=== PATIENT | female | born 1935 | race Caucasian/White ===

== ENCOUNTER → 2017-06-11 | Outpatient (CLI) | payer MEDICARE, OTHER ==
[2017-06-14 12:57] LABS: HPV Genotype 16 Not Detected (NOTDET); HPV Genotype 18 Not Detected (NOTDET)
[2017-06-19 09:26] LABS: HPV High Risk Other Not Detected (NOTDET)
== END | disposition home or self-care (01) ==
LOC: LAB SHORT 19:15 → LAB 19:15
PROVIDERS: Nurse Practitioner Women's Health
DX: Z12.4 Encounter for screening for malignant neoplasm of cervix (principal)
CPT/HCPCS: 87624; G0123

== ENCOUNTER → 2018-09-26 | Outpatient (CLI) | payer MEDICARE, OTHER | LOC: LAB 13:45 → LAB SHORT 13:45 | DX: R30.0 Dysuria (principal) | CPT/HCPCS: 87086 ==

== ENCOUNTER → 2018-10-05 | Outpatient (CLI) | payer MEDICARE, OTHER | END | disposition home or self-care (01) | LOC: LAB 15:23 → LAB SHORT 15:23 | DX: R30.0 Dysuria (principal) | CPT/HCPCS: 87086 ==

== ENCOUNTER → 2019-10-21 | Outpatient (CLI) | payer MEDICARE, OTHER ==
[2019-10-21 15:11] LABS: BASOPHILS ABSOLUTE AUTO 0.05 K/mm3 (0.00-0.23); BASOPHILS PERCENT AUTO 1 % (0-2); EOSINOPHILS ABSOLUTE AUTO 0.21 K/mm3 (0.00-0.68); EOSINOPHILS PERCENT AUTO 2 % (0-6); Hematocrit 40.1 % (33.0-51.0); Hemoglobin 13.5 g/dL (11.5-16.0); IMMATURE GRAN ABSOLUTE AUTO 0.03 K/mm3 (0.00-0.10); IMMATURE GRAN PERCENT AUTO 0 % (0-1); LYMPHOCYTES ABSOLUTE AUTO 2.84 K/mm3 (0.84-5.20); LYMPHOCYTES PERCENT AUTO 32 % (21-46); MONOCYTES ABSOLUTE AUTO 0.83 K/mm3 (0.16-1.47); MONOCYTES PERCENT AUTO 9 % (4-13); Mean Corpuscular HGB 31.4 pg (26.0-34.0); Mean Corpuscular HGB Conc 33.7 g/dL (31.5-36.5); Mean Corpuscular Volume 93 fL (80-100); Mean Platelet Volume 9.7 fL (9.1-12.4); NEUTROPHILS ABSOLUTE AUTO 4.86 K/mm3 (1.96-9.15); NEUTROPHILS PERCENT AUTO 55 % (41-73); Platelet Count 268 K/mm3 (150-400); RDW Coefficient Variation 13.8 % (11.7-14.2); RDW Standard Deviation 46.8 fL (35.1-46.3); White Blood Cell Count 8.82 K/mm3 (4.00-11.30)
[2019-10-21 15:23] LABS: Alanine Aminotransfer (ALT/SGP 37 U/L (12-78); Albumin, Blood 3.7 g/dL (3.4-5.0); Alk Phos 74 U/L (40-126); Anion Gap 8 mmol/L (6-16); Aspartate Aminotrans (AST/SGOT 29 U/L (12-37); Blood Urea Nitrogen 12 mg/dL (8-24); Bun/Creatinine Ratio 12.2 (12.0-20.0); CO2, Blood 26 mmol/L (21-32); Calcium, Blood 8.6 mg/dL (8.5-10.1); Chloride, Blood 106 mmol/L (98-108); Creatinine, Blood 0.98 mg/dL (0.40-1.00); Globulin, Blood 3.7 g/dL (2.2-4.0); Glomerular Filtration Rate 54 (60-); Glucose, Blood 81 mg/dL (70-99); Potassium, Blood 3.8 mmol/L (3.5-5.5); Sodium, Blood 140 mmol/L (136-145); Total Protein, Blood 7.4 g/dL (6.4-8.2); Troponin I <0.017 ng/mL (0.000-0.040)
== END ==
LOC: LAB EV 15:01 → LAB SHORT 15:01
PROVIDERS: Emergency Medicine
DX: R07.9 Chest pain, unspecified (principal)
CPT/HCPCS: 80053; 84484; 85025

== ENCOUNTER → 2023-02-03 | Outpatient (CLI) | payer OTHER ==
[2023-02-03 17:25] LABS: Source, Urine Voided
[2023-02-03 18:10] LABS: Bacteria Few /hpf; Red Blood Cells, Urine 0-2 /hpf (0-2); Squamous Epithelial Cells Mod /hpf (Few)
== END ==
LOC: LAB SHORT 13:00 → LAB 13:00
PROVIDERS: Family Medicine
DX: R30.0 Dysuria (principal)
CPT/HCPCS: 81015; 87086

== ENCOUNTER → 2024-04-12 | Outpatient (CLI) | payer OTHER | LOC: LAB 17:04 → LAB SHORT 17:04 | DX: R31.9 Hematuria, unspecified (principal) | CPT/HCPCS: 87077; 87086; 87186 ==

== ENCOUNTER 2024-08-31 05:54 | Emergency (ER) | payer OTHER ==
[~2024-08-31] VITALS: Ht 157.5 cm; Wt 73.5 kg
[2024-08-31] MEDS ORDERED: ROSUVASTATIN CA40 MG PO (06:04)
[2024-08-31] MEDS ORDERED: Prednisone10 MG PO (06:04)
[2024-08-31] MEDS ORDERED: METO50ER PO (06:04)
[2024-08-31] MEDS ORDERED: ELIQUIS5 M3 PO (06:04)
[2024-08-31] MEDS ORDERED: Ketorolac Tromethamine 30mg Vial IM ONE (07:35)
[2024-08-31] MEDS ORDERED: Colchicine 0.6 MG TAB PO ONE (07:35)
[2024-08-31 08:15] VITALS: BP 117/60
[2024-08-31] MEDS ORDERED: CEPH500 PO (10:00)
[2024-08-31] MEDS ORDERED: COLCHICINE0.6 MG PO (10:00)
== END 2024-08-31 10:10 | disposition home or self-care (01) ==
LOC: ER 05:54
DX: L03.116 Cellulitis of left lower limb (principal); M10.9 Gout, unspecified; E05.00 Thyrotoxicosis with diffuse goiter without thyrotoxic crisis or storm; E78.5 Hyperlipidemia, unspecified; I48.91 Unspecified atrial fibrillation; Z88.1 Allergy status to other antibiotic agents; Z79.01 Long term (current) use of anticoagulants; Z79.52 Long term (current) use of systemic steroids; Z79.899 Other long term (current) drug therapy
CPT/HCPCS: 73630; 96372; 99283-25; A9270; J1885

== ENCOUNTER 2024-09-13 08:35 | Inpatient (IN) | payer OTHER ==
[~2024-09-13] VITALS: Ht 157.5 cm; Wt 72.8 kg
[~2024-09-13 08:35] MED LIST: CEPH500 PO; COLCHICINE0.6 MG PO; ELIQUIS5 M3 PO; METO50ER PO; Prednisone10 MG PO; ROSUVASTATIN CA40 MG PO
[2024-09-13] MEDS ORDERED: Ondansetron HCl 2 MG / ML 2ML Vial IV ONE ×2 (09:35→12:10)
[2024-09-13 10:15] LABS: BASOPHILS ABSOLUTE AUTO 0.06 K/mm3 (0.00-0.23); BASOPHILS PERCENT AUTO 0 % (0-2); EOSINOPHILS ABSOLUTE AUTO 0.00 K/mm3 (0.00-0.68); EOSINOPHILS PERCENT AUTO 0 % (0-6); Hematocrit 42.8 % (33.0-51.0); Hemoglobin 14.8 g/dL (11.5-16.0); IMMATURE GRAN ABSOLUTE AUTO 0.10 K/mm3 (0.00-0.10); IMMATURE GRAN PERCENT AUTO 1 % (0-1); LYMPHOCYTES ABSOLUTE AUTO 1.19 K/mm3 (0.84-5.20); LYMPHOCYTES PERCENT AUTO 6 % (21-46); MONOCYTES ABSOLUTE AUTO 1.42 K/mm3 (0.16-1.47); MONOCYTES PERCENT AUTO 7 % (4-13); Mean Corpuscular HGB Conc 34.6 g/dL (31.5-36.5); Mean Corpuscular Volume 93 fL (80-100); NEUTROPHILS ABSOLUTE AUTO 17.76 K/mm3 (1.96-9.15); NEUTROPHILS PERCENT AUTO 87 % (41-73); NRBC ABSOLUTE 0.00 K/mm3 (0.00-0.02); NRBC Auto 0.0 /100 WBC (0.0-0.2); Platelet Count 429 K/mm3 (150-400); RDW Coefficient Variation 13.3 % (11.7-14.2); RDW Standard Deviation 45.3 fL (35.1-46.3)
[2024-09-13 10:56] LABS: Alanine Aminotransfer (ALT/SGP 53.0 U/L (12-78); Albumin, Blood 4.0 g/dL (3.4-5.0); Albumin/Globulin Ratio 1.0 (0.8-1.8); Anion Gap 12.0 mmol/L (3-11); Aspartate Aminotrans (AST/SGOT 40.0 U/L (12-37); Bilirubin, Total 1.8 mg/dL (0.1-1.0); Blood Urea Nitrogen 11.0 mg/dL (8-24); CO2, Blood 26.0 mmol/L (21-32); Calcium, Blood 9.3 mg/dL (8.5-10.1); Chloride, Blood 100.0 mmol/L (98-108); Creatinine, Blood 0.85 mg/dL (0.40-1.00); Globulin, Blood 4.1 g/dL (2.2-4.0); Glucose, Blood 206.0 mg/dL (70-99); Potassium, Blood 4.1 mmol/L (3.5-5.5); Sodium, Blood 134.0 mmol/L (136-145); Total Protein, Blood 8.1 g/dL (6.4-8.2)
[2024-09-13] MEDS ORDERED: COLCRYS0.6 M1 PO (12:01)
[2024-09-13] MEDS ORDERED: HYDROCODONE-AC1 EA10 PO (12:03)
[2024-09-13] MEDS ORDERED: NITROGLYCERIN0.4 M3 SL (12:03)
[2024-09-13] MEDS ORDERED: HYDROmorphone HCl/Pf 1MG SYR IV ONE (12:10)
[2024-09-13] MEDS ORDERED: NS 1,000 ML IV SCH (12:10)
[2024-09-13] MEDS ORDERED: CefTRIAXone Sodium 1,000 MG in NS 100 ML IV SCH (12:15)
[2024-09-13] MEDS ORDERED: Ondansetron HCl 2 MG / ML 2ML Vial IV PRN (12:15)
[2024-09-13] MEDS ORDERED: FentaNYL Citrate 50 MCG/ML 2 ML Injection IV PRN (12:15)
[2024-09-13 14:43] VITALS: BP 137/76
--- NOTE | 2024-09-13 18:53 | NUR ---
ADMIT NOTE PT A&OX4. PT ADMITTED DUE TO ACUTE CHOLY. PT REPORTS PAIN, DECLINED NEED FOR PAIN MEDS. PAIN IN RUQ. PT ADMITTED AT 1411. PT ORIENTED TO UNIT/FALL PRECAUTIONS CALL LIGHT. PT TRANSFERED FROM ER BED TO BED IN ROOM WITH SBA WITH PERSONAL CANE. PERSONAL BELONGINGS WITH PT. ADMISSION ASSESS COMPLETE. NO SKIN CONCERNS NOTED. PT HAS LR RUNNING AT 100ML/HR. PT ON CLEAR LIQUID DIET, TOLERATED DIET. REPORTS NAUSEA. NO VOMITTING. VSS. PT ON ROOM AIR. PLAN FOR NPO AT MIDNIGHT AND SURGERY TOMORROW. PT IN BED, BED IN LOWEST POSITION CALL LIGHT IN REACH.
--- NOTE | 2024-09-13 19:36 | NUR ---
NOTE CRITICAL LAB WAS REPORTED, NIGHT RN HEARD CALL. PT HAS LR RUNNING AT 100ML/HR. CONTROL PANEL ASSEMBLER NOTIFIED
[2024-09-13 20:06] VITALS: BP 128/113
[2024-09-13] MEDS ORDERED: Lactobacil 2-S.Thermo-Bifido 1 1 Cap PO SCH (21:00)
[2024-09-13 23:36] VITALS: BP 140/70
[2024-09-14] VITALS (19 sets, daily range): BP systolic 111–134; BP diastolic 65–97
--- NOTE | 2024-09-14 01:46 | NUR ---
DR ALDRIDGE MO REPORTS INCREASED PAIN TO RUQ/ABD, RATING 8/10 S/P ANALGESICS PER EMAR & NON-PHARM INTERVENTIONS. ORDERED ONE TIME DOSE IV DILAUDID.
[2024-09-14] MEDS ORDERED: HYDROmorphone HCl/Pf 1MG SYR IV ONE (01:50)
[2024-09-14 04:25] LABS: BASOPHILS ABSOLUTE AUTO 0.06 K/mm3 (0.00-0.23); BASOPHILS PERCENT AUTO 0 % (0-2); EOSINOPHILS ABSOLUTE AUTO 0.05 K/mm3 (0.00-0.68); EOSINOPHILS PERCENT AUTO 0 % (0-6); Hematocrit 38.2 % (33.0-51.0); Hemoglobin 13.0 g/dL (11.5-16.0); IMMATURE GRAN ABSOLUTE AUTO 0.15 K/mm3 (0.00-0.10); IMMATURE GRAN PERCENT AUTO 1 % (0-1); LYMPHOCYTES ABSOLUTE AUTO 1.88 K/mm3 (0.84-5.20); LYMPHOCYTES PERCENT AUTO 8 % (21-46); MONOCYTES ABSOLUTE AUTO 1.70 K/mm3 (0.16-1.47); MONOCYTES PERCENT AUTO 8 % (4-13); Mean Corpuscular HGB Conc 34.0 g/dL (31.5-36.5); Mean Corpuscular Volume 95 fL (80-100); NEUTROPHILS ABSOLUTE AUTO 18.59 K/mm3 (1.96-9.15); NEUTROPHILS PERCENT AUTO 83 % (41-73); NRBC ABSOLUTE 0.00 K/mm3 (0.00-0.02); NRBC Auto 0.0 /100 WBC (0.0-0.2); Platelet Count 344 K/mm3 (150-400); RDW Coefficient Variation 13.7 % (11.7-14.2); RDW Standard Deviation 48.2 fL (35.1-46.3)
[2024-09-14 04:45] LABS: Alanine Aminotransfer (ALT/SGP 36.0 U/L (12-78); Albumin, Blood 3.0 g/dL (3.4-5.0); Albumin/Globulin Ratio 0.8 (0.8-1.8); Anion Gap 7.0 mmol/L (3-11); Aspartate Aminotrans (AST/SGOT 27.0 U/L (12-37); Bilirubin, Total 1.7 mg/dL (0.1-1.0); Blood Urea Nitrogen 9.0 mg/dL (8-24); CO2, Blood 28.0 mmol/L (21-32); Calcium, Blood 8.6 mg/dL (8.5-10.1); Chloride, Blood 105.0 mmol/L (98-108); Creatinine, Blood 0.82 mg/dL (0.40-1.00); Globulin, Blood 3.7 g/dL (2.2-4.0); Glucose, Blood 128.0 mg/dL (70-99); Potassium, Blood 3.7 mmol/L (3.5-5.5); Sodium, Blood 136.0 mmol/L (136-145); Total Protein, Blood 6.7 g/dL (6.4-8.2)
--- NOTE | 2024-09-14 04:56 | NUR ---
SHIFT SUMMARY S/P ACUTE ERMELINDA ADMIT. NO ACUTE CHANGES OVERNIGHT. VSS. TOLERATED CLEAR LIQUIED DIET, DENIES N/V. NPO @ [address] FISHER ORDERS IN ANTICIPATION OF SURGERY LATER TODAY. PT ENDORSES RUQ & MIDLINE ABD PAIN, MEDICATED PER EMAR c RELIEF. DENIES PASSING FLATUS. VOIDING. IV FLUIDS/ABX INFUSING PER EMAR. AMBULATES c SBA TO BATHROOM. CALL LIGHT IN REACH, BED ALARM IN USE, WILL REPORT TO DAY RN.
[2024-09-14] MEDS ORDERED: Bupivacaine 0.5% W/EPI 1:200000 SDV 30 ML Vial ONE (10:31)
[2024-09-14] MEDS ORDERED: FentaNYL Citrate 50 MCG/ML 2 ML Injection ONE ×2 (11:15→14:39)
[2024-09-14] MEDS ORDERED: Dexamethasone Sod Phos 10 MG/ML 1ML VIAL ONE (12:47)
[2024-09-14] MEDS ORDERED: Ondansetron HCl 2 MG / ML 2ML Vial ONE (12:47)
[2024-09-14] MEDS ORDERED: Rocuronium Bromide 10 MG/ML 5ML Injection IV ONE (12:47)
[2024-09-14] MEDS ORDERED: Sugammadex Sodium 200 MG/2ML SDV (100 MG/ML) ONE (12:48)
[2024-09-14] MEDS ORDERED: HYDROmorphone HCl/Pf 1MG SYR IV PRN ×2 (13:35→13:40)
[2024-09-14] MEDS ORDERED: FentaNYL Citrate 50 MCG/ML 2 ML Injection IV PRN ×2 (13:35)
[2024-09-14] MEDS ORDERED: Labetalol HCL 5 MG/ML 4ML Injection (Single Dose) IV PRN (13:35)
[2024-09-14] MEDS ORDERED: Ondansetron HCl 2 MG / ML 2ML Vial IV PRN (13:35)
--- NOTE | 2024-09-14 17:44 | NUR ---
SHIFT SUMMARY S/P LAP ERMELINDA. PT REPORTS PAIN IS MUCH IMPROVED AFTER SURGERY. SHE DENIES NAUSEA AND IS TOLERATING PO WELL. VERY TIRED POST OPERATIVELY. LAP SITES REMAIN CDI. TITRATING TO ROOM AIR PATIENT WAKES UP.
[2024-09-15 03:45] VITALS: BP 132/77
--- NOTE | 2024-09-15 04:37 | NUR ---
SHIFT SUMMARY POD 1 LAP ERMELINDA. NO ACUTE CHANGES OVERNIGHT. VSS. TOLERATING ORALS, DENIES N/V. REPORTS PASSING FLATUS, NO BM. VOIDING. LAP SITE x4 c WOUND GLUE C/D/I. REPORTS PAIN TOLERABLE. SLEP WELL. AMBULATES USING CANE. CALL LIGHT IN REACH, BED IN LOWEST POSITION, WILL REPORT TO DAY RN.
[2024-09-15 05:06] LABS: BASOPHILS ABSOLUTE AUTO 0.02 K/mm3 (0.00-0.23); BASOPHILS PERCENT AUTO 0 % (0-2); EOSINOPHILS ABSOLUTE AUTO 0.01 K/mm3 (0.00-0.68); EOSINOPHILS PERCENT AUTO 0 % (0-6); Hematocrit 34.4 % (33.0-51.0); Hemoglobin 11.5 g/dL (11.5-16.0); IMMATURE GRAN ABSOLUTE AUTO 0.11 K/mm3 (0.00-0.10); IMMATURE GRAN PERCENT AUTO 1 % (0-1); LYMPHOCYTES ABSOLUTE AUTO 1.11 K/mm3 (0.84-5.20); LYMPHOCYTES PERCENT AUTO 8 % (21-46); MONOCYTES ABSOLUTE AUTO 0.70 K/mm3 (0.16-1.47); MONOCYTES PERCENT AUTO 5 % (4-13); Mean Corpuscular HGB Conc 33.4 g/dL (31.5-36.5); Mean Corpuscular Volume 95 fL (80-100); NEUTROPHILS ABSOLUTE AUTO 12.79 K/mm3 (1.96-9.15); NEUTROPHILS PERCENT AUTO 87 % (41-73); NRBC ABSOLUTE 0.00 K/mm3 (0.00-0.02); NRBC Auto 0.0 /100 WBC (0.0-0.2); Platelet Count 311 K/mm3 (150-400); RDW Coefficient Variation 13.6 % (11.7-14.2); RDW Standard Deviation 48.3 fL (35.1-46.3)
[2024-09-15 05:34] LABS: Anion Gap 7.0 mmol/L (3-11); Blood Urea Nitrogen 13.0 mg/dL (8-24); CO2, Blood 28.0 mmol/L (21-32); Calcium, Blood 8.3 mg/dL (8.5-10.1); Chloride, Blood 106.0 mmol/L (98-108); Creatinine, Blood 0.92 mg/dL (0.40-1.00); Glucose, Blood 142.0 mg/dL (70-99); Potassium, Blood 4.1 mmol/L (3.5-5.5); Sodium, Blood 137.0 mmol/L (136-145)
[2024-09-15 07:27] VITALS: BP 141/77
--- NOTE | 2024-09-15 10:15 | NUR ---
Pt. is resting but reponds when I enter the room. Pt. is pleasant, and informed this radioisotope production operator that people call her "boots". Facilitated a lengthy life review and considered that Pts. recent health difficulties. Listen with empathy and a calming presence. Considered matters of her family and yamile. Pt. verbalized her love for her local christian. Prayed with the Pt. Pt. displays evidence of being encouraged and requested that this radioisotope production operator contact her christian to let her know she is in the hospital. Pt. verbalized gratitude for the spiritual care visit. A call was made to [facility] to notify them of the Pts. admission as the Pt. requested.
[2024-09-15] MEDS ORDERED: Albuterol 2.5 MG/3 ML VIAL INH ONE (10:45)
[2024-09-15 13:30] VITALS: BP 140/82
--- NOTE | 2024-09-15 13:43 | NUR ---
DISCHARGED REVIEWED DC INSTRUCTIONS W/PT; VERBALIZED UNDERSTANDING. DC'D IV, CATHETER INTACT. PT LEFT UNIT IN WC W/POSSESSIONS AND DC PAPERWORK/PRESCRIPTION IN HAND, ACCOMPANIED BY SON.
== END 2024-09-15 13:38 | disposition home or self-care (01) | DRG 854 ==
LOC: ER 08:35 → SURS 08:36 → MEDS 12:11 → ER 12:11 → SURS 12:11 → MEDS 14:07 → SURS 14:07
PROVIDERS: Physician Assistant; Surgery; ADMIT Family Medicine
PROC: 3E03329 Introduction of Other Anti-infective into Peripheral Vein, Percutaneous Approach (ICD-10-PCS; 2024-09-13)
PROC: BF50200 Other Imaging of Bile Ducts using Fluorescing Agent, Indocyanine Green Dye, Intraoperative (ICD-10-PCS; 2024-09-14)
PROC: 0FT44ZZ Resection of Gallbladder, Percutaneous Endoscopic Approach (ICD-10-PCS; principal; 2024-09-14 12:30)
DX: A41.9 Sepsis, unspecified organism (principal); E87.1 Hypo-osmolality and hyponatremia; K81.0 Acute cholecystitis; R65.20 Severe sepsis without septic shock; K82.A1 Gangrene of gallbladder in cholecystitis; I48.0 Paroxysmal atrial fibrillation; E78.5 Hyperlipidemia, unspecified; I10 Essential (primary) hypertension; M10.9 Gout, unspecified; Z88.1 Allergy status to other antibiotic agents; Z79.01 Long term (current) use of anticoagulants; Z79.891 Long term (current) use of opiate analgesic
CPT/HCPCS: 36415; 36416; 76705; 80048; 80053; 83036; 83605; 83690; 85025; 88304; 93005; 93010; 94640; 94664; 99285-25; A9270; J0696; J1100; J1171; J2405; J2704; J3010; J7030; J7120

== ENCOUNTER → 2024-11-30 | Outpatient (CLI) | payer OTHER ==
[~2024-11-30] MED LIST changes: +COLCRYS0.6 M1 PO; +HYDROCODONE-AC1 EA10 PO; +NITROGLYCERIN0.4 M3 SL
[2024-11-30 15:11] LABS: BASOPHILS ABSOLUTE AUTO 0.08 K/mm3 (0.00-0.23); BASOPHILS PERCENT AUTO 1 % (0-2); EOSINOPHILS ABSOLUTE AUTO 0.30 K/mm3 (0.00-0.68); EOSINOPHILS PERCENT AUTO 3 % (0-6); Hematocrit 38.3 % (33.0-51.0); Hemoglobin 12.7 g/dL (11.5-16.0); IMMATURE GRAN ABSOLUTE AUTO 0.02 K/mm3 (0.00-0.10); IMMATURE GRAN PERCENT AUTO 0 % (0-1); LYMPHOCYTES ABSOLUTE AUTO 2.42 K/mm3 (0.84-5.20); LYMPHOCYTES PERCENT AUTO 27 % (21-46); MONOCYTES ABSOLUTE AUTO 0.64 K/mm3 (0.16-1.47); MONOCYTES PERCENT AUTO 7 % (4-13); Mean Corpuscular HGB Conc 33.2 g/dL (31.5-36.5); Mean Corpuscular Volume 95 fL (80-100); NEUTROPHILS ABSOLUTE AUTO 5.41 K/mm3 (1.96-9.15); NEUTROPHILS PERCENT AUTO 61 % (41-73); NRBC ABSOLUTE 0.00 K/mm3 (0.00-0.02); NRBC Auto 0.0 /100 WBC (0.0-0.2); Platelet Count 268 K/mm3 (150-400); RDW Coefficient Variation 14.9 % (11.7-14.2); RDW Standard Deviation 51.7 fL (35.1-46.3)
[2024-11-30 15:23] LABS: Alanine Aminotransfer (ALT/SGP 23.0 U/L (12-78); Albumin, Blood 3.7 g/dL (3.4-5.0); Albumin/Globulin Ratio 1.1 (0.8-1.8); Anion Gap 12.0 mmol/L (3-11); Aspartate Aminotrans (AST/SGOT 22.0 U/L (12-37); Bilirubin, Total 1.5 mg/dL (0.1-1.0); Blood Urea Nitrogen 9.0 mg/dL (8-24); CO2, Blood 27.0 mmol/L (21-32); Calcium, Blood 9.0 mg/dL (8.5-10.1); Chloride, Blood 106.0 mmol/L (98-108); Creatinine, Blood 0.93 mg/dL (0.40-1.00); Globulin, Blood 3.3 g/dL (2.2-4.0); Glucose, Blood 118.0 mg/dL (70-99); Magnesium, Blood 1.9 mg/dL (1.6-2.4); Potassium, Blood 4.0 mmol/L (3.5-5.5); Sodium, Blood 141.0 mmol/L (136-145); Total Protein, Blood 7.0 g/dL (6.4-8.2)
== END ==
LOC: LAB SHORT 15:07 → LAB 15:07
PROVIDERS: Physician Assistant
DX: M62.81 Muscle weakness (generalized) (principal)
CPT/HCPCS: 80053; 82550; 83735; 85025; 85651; 86140